=== PATIENT | female | born 1985 | race Caucasian/White ===

== ENCOUNTER 2017-08-18 00:22 | Emergency (ER) | payer SELFPAY ==
[2017-08-18 00:30] VITALS: BP 107/67; BMI 19.7
[2017-08-18] MEDS ORDERED: TORADOL 30 MG VIAL IVP ONE (00:32)
[2017-08-18] MEDS ORDERED: NS 1000 ML 1,000 ML IV ONE (00:32)
[2017-08-18] MEDS ORDERED: NS 1000 ML 1,000 ML ONE (00:34)
[2017-08-18] MEDS ORDERED: TYLENOL 500 MG TAB EXTRA STRENGTH PO ONE ×2 (00:35→01:09)
--- NOTE | 2017-08-18 00:47 | DR.GENAD ---
HPI - PCP Primary Care Physician: NONE - Complaint/Symptoms Chief Complaint Doctors Comments: Patient presents with flu like symptoms with generalized myalgias, low grade fever. Chief Complaint:: PAST 2 DAYS HAVING SHARP PAINS IN HEAD AND RUNNING FEVER. NECK AND LOWER PART OF BACK HURTING BAD. NAUSEAUS AND THROWING TODAY Self Treatment fo Chief Complaint: IBUPROFEN, BACTRIM - Source History Provided: Patient - Mode of Arrival Mode of Arrival: Ambulatory - Timing Onset of Chief Complaint: 08/16/17 PMH - PMH Past Medical History: Yes Past Medical History: Seizures Past Surgical History: Yes Past Surgical History Comment: CYSTS REMOVED TWICE, DNC - Family History History of Family Medical Conditions: Yes Family Medical History: Cancer, Hypertension - Social History Does patient currently use any type of tobacco product: Yes Have you used tobacco products in the last 12 months: Yes Type of Tobacco Use: Cigarettes Alcohol Use: None Do you use any recreational Drugs:: No Lives With: Family Lives Where: Home - infectious screening In the last 2 months have you had wt loss of >10#?: NO Have you had fever, night sweats or hemotysis?: No Have you traveled outside the country in the last 6 months?: No Isolation: Standard ROS - Review of Systems Eyes: No Symptoms Reported ENTM: No Symptoms Reported Respiratoy: No Symptoms Reported Cardiovascular: No Symptoms Reported Gastrointestinal/Abdominal: No Symptoms Reported Genitourinary: No Symptoms Reported Neurological: No Symptoms Reported Musculoskeletal: Other (myalgia) Integumentary: No Symptoms Reported Hematologic/Lymphatic: No Symptoms Reported Endocrine: No Symptoms Reported Psychiatric: No Symptoms Reported All Other Systems: Reviewed and Negative PE - Vital Signs Vitals: Temperature 100.5 F Pulse Rate 120 Respiratory Rate 20 Blood Pressure 107/67 O2 Sat by Pulse Oximetry 96 - General General Appearance: Alert, In No Apparent Distress - Head Head Exam: Normal Inspection, Atraumatic - Eyes Eye exam: Normal Appearance, PERRL, EOMI - ENT ENT Exam: Normal Exam External Ear Exam: Normal External Inspection TM/Canal Exam: Bilateral Normal Nose Exam: Normal Nose Exam Mouth Exam: Normal Inspection Throat Exam: Normal Inspection - Neck Neck Exam: Normal Inspection, Full ROM - Chest Chest Inspection: Normal Inspection, Symmetric Chest Wall Rise - Respiratory Respiratory Exam: Normal Lung Sounds Bilat Respiratory Exam: Bilateral Clear to Auscultation - Cardiovascular Cardiovascular Exam: Regular Rate, Normal Rhythm - Abdominal Exam Abdominal Exam: Normal Inspection Abdominal Tenderness: negative: RUQ, RLQ, LUQ, LLQ, Epigastrium, Suprapubic, Diffuse, Mild, Moderate, Severe, Other - Extremities Extremities Exam: Normal Inspection, Full ROM - Back Back Exam: Normal Inspection, Full ROM - Neurologic Neurological Exam: Alert, Oriented X3, CN II-XII Intact - Psychiatric Psychiatric Exam: Normal Affect, Normal Mood - Skin Skin Exam: Warm, Dry, Intact Course - Reevaluation 1st: Improved ROR - Labs Reviewed Laboratory Results Reviewed?: Yes (Low sodium) Result Diagrams: 08/18/17 00:58 08/18/17 00:58 Laboratory: WBC 5.7 X10^3/uL (3.6-10.0) 08/18/17 00:58 RBC 4.55 X10^6/uL (3.5-5.4) 08/18/17 00:58 Hgb 13.2 g/dL (12.0-16.0) 08/18/17 00:58 Hct 38.2 % (36.0-47.0) 08/18/17 00:58 MCV 83.9 fL (80.0-100.0) 08/18/17 00:58 MCH 29.0 pg (27.0-34.0) 08/18/17 00:58 MCHC 34.5 g/dL (33.0-35.0) 08/18/17 00:58 RDW 13.5 % (11.6-16.5) 08/18/17 00:58 Plt Count 187 X10^3/uL (150.0-450.0) 08/18/17 00:58 MPV 8.4 fL (7.4-11.0) 08/18/17 00:58 Neut % 81.2 % (42.0-75.0) H 08/18/17 00:58 Lymph % 5.7 % (21.0-51.0) L 08/18/17 00:58 [place] % 7.4 % (0.0-13.0) 08/18/17 00:58 Eos % 5.2 % (0.9-2.9) H 08/18/17 00:58 Baso % 0.5 % (0.2-1.0) 08/18/17 00:58 Neut # 4.6 x10^3/uL (2.2-4.8) 08/18/17 00:58 Lymph # 0.3 X10^3/uL (1.3-2.9) L 08/18/17 00:58 [place] # 0.4 x10^3/uL (0.3-0.8) 08/18/17 00:58 Eos # 0.3 x10^3/uL (0.0-0.2) H 08/18/17 00:58 Baso # 0.0 X10^3/uL (0.0-0.1) 08/18/17 00:58 Absolute Nucleated RBC 0.1 /100WBC 08/18/17 00:58 Sodium 132 mmol/L (136-145) L 08/18/17 00:58 Corrected Sodium TNP 08/18/17 00:58 Potassium 3.9 mmol/L (3.5-5.1) 08/18/17 00:58 Chloride 97 mmol/L (98-107) L 08/18/17 00:58 Carbon Dioxide 24.6 mmol/L (21-32) 08/18/17 00:58 BUN 7 mg/dL (7-18) 08/18/17 00:58 Creatinine 0.66 mg/dL (0.55-1.02) 08/18/17 00:58 Est GFR (MDRD) Af Amer > 60 (>60) 08/18/17 00:58 Est GFR (MDRD) Non-Af > 60 (>60) 08/18/17 00:58 Glucose 89 mg/dL (65-99) 08/18/17 00:58 Calcium 8.8 mg/dL (8.5-10.1) 08/18/17 00:58 Specimen Type Clean catch urine 08/18/17 01:08 Urine Color Yellow (YELLOW) 08/18/17 01:08 Urine Appearance Clear (CLEAR) 08/18/17 01:08 Urine pH 7.0 (5.0 - 8.0) 08/18/17 01:08 Ur Specific [place] 1.010 (1.000-1.030) 08/18/17 01:08 Urine Protein 2+ (NEGATIVE) 08/18/17 01:08 Urine Glucose (UA) Negative (NEGATIVE) 08/18/17 01:08 Urine Ketones Negative (NEGATIVE) 08/18/17 01:08 Urine Occult Blood 3+ (NEGATIVE) 08/18/17 01:08 Urine Nitrite Negative (NEGATIVE) 08/18/17 01:08 Urine Bilirubin Negative (NEGATIVE) 08/18/17 01:08 Urine Urobilinogen Normal (NORMAL) 08/18/17 01:08 Ur Leukocyte Esterase Negative (NEGATIVE) 08/18/17 01:08 Urine RBC 0-3 /HPF (NEGATIVE) 08/18/17 01:08 Urine WBC 0-3 /HPF (NEGATIVE) 08/18/17 01:08 Ur Squamous Epith Cells Few /HPF (NEGATIVE) 08/18/17 01:08 Urine Bacteria Negative /HPF (NEGATIVE) 08/18/17 01:08 Ur Culture Indicated? No/not indicated 08/18/17 01:08 Influenza Type A (PCR) Negative (NEGATIVE) 08/18/17 01:08 Influenza Type B (PCR) Negative (NEGATIVE) 08/18/17 01:08 Streptococcus Screen Negative (NEGATIVE) 08/18/17 01:08 - XRAY XRAY Interpreted by: Radiologist - Diagnosis Discharge Problem: Influenza-like symptoms - Discharge Plan Condition: Stable - Follow ups/Referrals Follow ups/Referrals: NFD,None [Primary Care Provider] - 3 days - Instructions
[2017-08-18] MEDS ORDERED: TORADOL 30 MG VIAL ONE (01:09)
[2017-08-18 01:21] LABS: BASOPHILS % (AUTO) 0.5 % (0.2-1.0); EOSINOPHILS # (AUTO) 0.3 x10^3/uL (0.0-0.2); EOSINOPHILS % (AUTO) 5.2 % (0.9-2.9); HEMATOCRIT 38.2 % (36.0-47.0); HEMOGLOBIN 13.2 g/dL (12.0-16.0); LYMPHOCYTES # (AUTO) 0.3 X10^3/uL (1.3-2.9); LYMPHOCYTES % (AUTO) 5.7 % (21.0-51.0); MEAN CORPUSCULAR HGB CONC 34.5 g/dL (33.0-35.0); MEAN CORPUSCULAR VOLUME 83.9 fL (80.0-100.0); MEAN PLATELET VOLUME 8.4 fL (7.4-11.0); MONOCYTES # (AUTO) 0.4 x10^3/uL (0.3-0.8); MONOCYTES % (AUTO) 7.4 % (0.0-13.0); NEUTROPHILS # (AUTO) 4.6 x10^3/uL (2.2-4.8); NEUTROPHILS % (AUTO) 81.2 % (42.0-75.0); PLATELET COUNT 187 X10^3/uL (150.0-450.0); RED BLOOD COUNT 4.55 X10^6/uL (3.5-5.4); RED CELL DISTRIBUTION WIDTH 13.5 % (11.6-16.5); WHITE BLOOD COUNT 5.7 X10^3/uL (3.6-10.0)
[2017-08-18 01:30] LABS: BLOOD UREA NITROGEN 7 mg/dL (7-18); CALCIUM 8.8 mg/dL (8.5-10.1); CARBON DIOXIDE 24.6 mmol/L (21-32); CHLORIDE 97 mmol/L (98-107); CREATININE 0.66 mg/dL (0.55-1.02); SODIUM 132 mmol/L (136-145); eGFR BLACK RACES > 60 (>60); eGFR NON BLACK RACES > 60 (>60)
[2017-08-18 01:39] LABS: BILIRUBIN,URINE NEGATIVE (NEGATIVE); BLOOD/HEMOGLOBIN,URINE 3+ (NEGATIVE); GLUCOSE, URINE NEGATIVE (NEGATIVE); KETONES,URINE NEGATIVE (NEGATIVE); LEUKOCYTE ESTERASE ,URINE NEGATIVE (NEGATIVE); NITRITES,URINE NEGATIVE (NEGATIVE); PROTEIN,URINE 2+ (NEGATIVE); UROBILINOGEN,URINE NORMAL (NORMAL)
[2017-08-18 02:00] LABS: APPEARANCE,URINE CLEAR (CLEAR); BACTERIA,URINE NEGATIVE /HPF (NEGATIVE); COLOR,URINE YELLOW (YELLOW); RBC,URINE 0-3 /HPF (NEGATIVE); SQUAMOUS EPITHELIAL CELL,UR FEW /HPF (NEGATIVE)
== END 2017-08-18 02:43 | disposition home or self-care (01) ==
LOC: ER 00:40
DX: J11.1 Influenza due to unidentified influenza virus with other respiratory manifestations (principal)
CPT/HCPCS: 36415; 80048; 81001; 85025; 87070; 87502; 87880; 96365; 96374; 99283; A4222; J1885